=== PATIENT | female | born 1995 | race Caucasian/White ===

== ENCOUNTER 2018-09-20 12:15 | Observation (INO) | payer MEDICAID ==
[~2018-09-20] VITALS: Ht 167.6 cm; Wt 87.1 kg
[2018-09-20] MEDS ORDERED: PNV91TAB10 PO (12:39)
[2018-09-20 12:53] VITALS: BP 114/68
== END 2018-09-20 14:40 | disposition home or self-care (01) ==
LOC: MLD 12:15
PROVIDERS: ADMIT Obstetrics & Gynecology; ATTEND Obstetrics & Gynecology
DX: O36.8130 Decreased fetal movements, third trimester, not applicable or unspecified (principal); Z3A.28 28 weeks gestation of pregnancy
CPT/HCPCS: 81000; G0378